=== PATIENT | female | born 1945 | race Caucasian/White ===

== ENCOUNTER 2017-03-06 03:58 | Inpatient (IN) | payer OTHER, BC ==
[~2017-03-06] VITALS: Ht 157.5 cm; Wt 86.1 kg
[~2017-03-06 03:58] MED LIST: ASPIR 8181 M1 PO; CENTRUM SILVER1 EAC3 PO; COZAAR25 MG PO; FEROSUL325 MG PO; FISH OIL 1,2001 EAC4 PO; GLUCOPHAGE850 MG PO; METOPROLOL TART25 MG PO; PLAVIX75 MG PO; TRADJENTA5 MG PO; VITAMIN D400 UNIT PO; ZOCOR40 MG PO
[2017-03-06 12:31] LABS: HEMATOCRIT 32.3 % (36.0-46.0); MCH 30.4 PG (29.0-34.0); MCHC 34.1 G/DL (30.0-36.0); MCV 89.2 FL (83-99); MEAN PLAT.VOLUME 15.1 uM^3 (9.5-12.4); NRBC (%) 0.2 /100 WBC (0-0); PLATELET COUNT 123 K/uL (156-360); RBC DIS.WIDTH-CV 14.8 % (11.8-14.6); RBC DIS.WIDTH-SD 47.4 % (39-53); RED BLOOD COUNT 3.62 M/uL (3.80-5.20); WHITE BLOOD COUNT 11.5 K/uL (4.1-10.2)
[2017-03-06 13:03] LABS: POINT-OF-CARE METER ID UU14174212
[2017-03-06 13:13] VITALS: BP 172/78
[2017-03-06 16:44] LABS: POINT-OF-CARE METER ID UU13113675
[2017-03-06 20:46] VITALS: BP 103/55
[2017-03-06 22:10] LABS: POINT-OF-CARE METER ID UU13113725
[2017-03-06 23:58] VITALS: BP 110/64
[2017-03-07] VITALS (7 sets, daily range): BP systolic 101–143; BP diastolic 57–64
[2017-03-07 00:27] LABS: POINT-OF-CARE METER ID UU13113725
[2017-03-07 05:29] LABS: HEMATOCRIT 27.8 % (36.0-46.0); MCHC 33.1 G/DL (30.0-36.0); MCV 90.6 FL (83-99); MEAN PLAT.VOLUME 14.1 uM^3 (9.5-12.4); PLATELET COUNT 117 K/uL (156-360); RBC DIS.WIDTH-CV 14.6 % (11.8-14.6); RBC DIS.WIDTH-SD 47.4 % (39-53); RED BLOOD COUNT 3.07 M/uL (3.80-5.20); WHITE BLOOD COUNT 15.8 K/uL (4.1-10.2)
[2017-03-07 05:38] LABS: POINT-OF-CARE METER ID UU13113725
[2017-03-07 05:55] LABS: ANION GAP 6 MEQ/L (2-14); CHLORIDE 105 MEQ/L (99-109); GFR ESTIMATE (CALCULATED) > 59 mL/min/; GLUCOSE 191 mg/dL (70-99); MAGNESIUM 1.4 mg/dl (1.3-2.7); POTASSIUM 4.7 MEQ/L (3.7-5.4); SAMPLE HEMOLYSIS CHECK 0; SAMPLE ICTERIC CHECK 0; SAMPLE LIPEMIA CHECK 0; SODIUM 139 MEQ/L (136-147); UREA NITROGEN (BUN) 9 mg/dL (9-23)
[2017-03-07 11:39] LABS: POINT-OF-CARE METER ID UU13113725
[2017-03-07 18:10] LABS: POINT-OF-CARE METER ID UU13113774
[2017-03-08] VITALS (7 sets, daily range): BP systolic 111–168; BP diastolic 58–72
[2017-03-08 00:29] LABS: POINT-OF-CARE METER ID UU13113774
[2017-03-08 05:35] LABS: HEMATOCRIT 26.6 % (36.0-46.0); MCH 29.7 PG (29.0-34.0); MEAN PLAT.VOLUME 14.1 uM^3 (9.5-12.4); PLATELET COUNT 126 K/uL (156-360); RBC DIS.WIDTH-CV 14.6 % (11.8-14.6); RBC DIS.WIDTH-SD 49.2 % (39-53); RED BLOOD COUNT 2.86 M/uL (3.80-5.20); WHITE BLOOD COUNT 10.8 K/uL (4.1-10.2)
[2017-03-08 06:05] LABS: POINT-OF-CARE METER ID UU13113725
[2017-03-08 06:35] LABS: ANION GAP 8 MEQ/L (2-14); CHLORIDE 106 MEQ/L (99-109); GFR ESTIMATE (CALCULATED) > 59 mL/min/; GLUCOSE 157 mg/dL (70-99); POTASSIUM 3.9 MEQ/L (3.7-5.4); SAMPLE HEMOLYSIS CHECK 0; SAMPLE ICTERIC CHECK 0; SAMPLE LIPEMIA CHECK 0; SODIUM 141 MEQ/L (136-147); UREA NITROGEN (BUN) 7 mg/dL (9-23)
[2017-03-08 12:30] LABS: POINT-OF-CARE METER ID UU13113774
[2017-03-08 15:19] LABS: POINT-OF-CARE METER ID UU13113725
[2017-03-08 20:24] LABS: POINT-OF-CARE METER ID UU13113725
[2017-03-09] VITALS (7 sets, daily range): BP systolic 97–121; BP diastolic 51–61
[2017-03-09 00:22] LABS: POINT-OF-CARE METER ID UU13113774
[2017-03-09 06:04] LABS: POINT-OF-CARE METER ID UU13113774
[2017-03-09 07:57] LABS: HEMATOCRIT 26.9 % (36.0-46.0); MCH 29.6 PG (29.0-34.0); MCV 92.4 FL (83-99); PLATELET COUNT 148 K/uL (156-360); RBC DIS.WIDTH-SD 47.2 % (39-53); RED BLOOD COUNT 2.91 M/uL (3.80-5.20); WHITE BLOOD COUNT 10.2 K/uL (4.1-10.2)
[2017-03-09 08:26] LABS: ANION GAP 7 MEQ/L (2-14); CHLORIDE 104 MEQ/L (99-109); GFR ESTIMATE (CALCULATED) > 59 mL/min/; GLUCOSE 129 mg/dL (70-99); POTASSIUM 3.5 MEQ/L (3.7-5.4); SAMPLE HEMOLYSIS CHECK 0; SAMPLE ICTERIC CHECK 0; SAMPLE LIPEMIA CHECK 0; SODIUM 141 MEQ/L (136-147); UREA NITROGEN (BUN) 6 mg/dL (9-23)
[2017-03-09 11:30] LABS: POINT-OF-CARE METER ID UU13113774
[2017-03-09 18:03] LABS: POINT-OF-CARE METER ID UU13113774
[2017-03-09 23:53] LABS: POINT-OF-CARE METER ID UU13113774
[2017-03-10 03:30] VITALS: BP 120/62
[2017-03-10 05:58] LABS: POINT-OF-CARE METER ID UU13113725
[2017-03-10 06:39] LABS: HEMATOCRIT 25.3 % (36.0-46.0); MCH 29.2 PG (29.0-34.0); MCHC 31.6 G/DL (30.0-36.0); MCV 92.3 FL (83-99); MEAN PLAT.VOLUME 14.2 uM^3 (9.5-12.4); PLATELET COUNT 151 K/uL (156-360); RBC DIS.WIDTH-CV 13.9 % (11.8-14.6); RBC DIS.WIDTH-SD 46.9 % (39-53); RED BLOOD COUNT 2.74 M/uL (3.80-5.20); WHITE BLOOD COUNT 7.7 K/uL (4.1-10.2)
[2017-03-10 07:10] LABS: ANION GAP 10 MEQ/L (2-14); CHLORIDE 107 MEQ/L (99-109); GFR ESTIMATE (CALCULATED) > 59 mL/min/; GLUCOSE 146 mg/dL (70-99); POTASSIUM 3.6 MEQ/L (3.7-5.4); SAMPLE HEMOLYSIS CHECK 0; SAMPLE ICTERIC CHECK 0; SAMPLE LIPEMIA CHECK 0; SODIUM 143 MEQ/L (136-147); UREA NITROGEN (BUN) 4 mg/dL (9-23)
[2017-03-10 07:55] VITALS: BP 121/58
[2017-03-10 11:40] LABS: POINT-OF-CARE METER ID UU13113725
[2017-03-10 12:59] VITALS: BP 147/65
[2017-03-10 16:32] VITALS: BP 153/70
[2017-03-10 18:01] LABS: POINT-OF-CARE METER ID UU13113725
[2017-03-10 22:03] VITALS: BP 143/65
[2017-03-11 00:06] VITALS: BP 117/56
[2017-03-11 00:13] LABS: POINT-OF-CARE METER ID UU13113774
[2017-03-11 05:49] LABS: POINT-OF-CARE METER ID UU13113774
[2017-03-11 06:41] LABS: ANION GAP 8 MEQ/L (2-14); CHLORIDE 107 MEQ/L (99-109); GFR ESTIMATE (CALCULATED) > 59 mL/min/; GLUCOSE 155 mg/dL (70-99); POTASSIUM 3.6 MEQ/L (3.7-5.4); SAMPLE HEMOLYSIS CHECK 0; SAMPLE ICTERIC CHECK 0; SAMPLE LIPEMIA CHECK 0; SODIUM 143 MEQ/L (136-147); UREA NITROGEN (BUN) 3 mg/dL (9-23)
[2017-03-11 07:51] VITALS: BP 128/56
[2017-03-11 10:12] LABS: HEMATOCRIT 24.5 % (36.0-46.0); MCHC 32.7 G/DL (30.0-36.0); MCV 91.8 FL (83-99); PLATELET COUNT 185 K/uL (156-360); RBC DIS.WIDTH-CV 13.8 % (11.8-14.6); RBC DIS.WIDTH-SD 47.2 % (39-53); RED BLOOD COUNT 2.67 M/uL (3.80-5.20); WHITE BLOOD COUNT 6.9 K/uL (4.1-10.2)
[2017-03-11] MEDS ORDERED: NORCO 5/3251 TABLET PO (10:49)
[2017-03-11 11:34] LABS: POINT-OF-CARE METER ID UU13113774
== END 2017-03-11 12:50 | disposition home or self-care (01) | DRG 330 ==
LOC: ENRESERV 03:58 → CANRESERV 03:58 → 2SOUTH 12:03 → 5EAST 12:03 → 2SOUTH 13:03 → ENRESERV 17:03 → 5EAST 19:17 → ENPENDDIS 03-11 → 5EAST 03-11 12:50
PROVIDERS: Physician Assistant; Surgery
PROC: 0DTF0ZZ Resection of Right Large Intestine, Open Approach (ICD-10-PCS; principal; 2017-03-06)
DX: C18.2 Malignant neoplasm of ascending colon (principal); C77.2 Secondary and unspecified malignant neoplasm of intra-abdominal lymph nodes; I10 Essential (primary) hypertension; E11.9 Type 2 diabetes mellitus without complications; E78.00 Pure hypercholesterolemia, unspecified; D64.9 Anemia, unspecified; K21.9 Gastro-esophageal reflux disease without esophagitis; I25.10 Atherosclerotic heart disease of native coronary artery without angina pectoris; Z80.0 Family history of malignant neoplasm of digestive organs; Z95.5 Presence of coronary angioplasty implant and graft; Z79.02 Long term (current) use of antithrombotics/antiplatelets; Z79.82 Long term (current) use of aspirin
CPT/HCPCS: 80048; 82948; 83735; 84100; 85027; 86850; 86900; 86901; 86920; 88309; 93005; 94799; J0131; J0330; J1170; J1335; J1815; J2405; J2710; J3010; J3480; J7050; S0020